=== PATIENT | male | born 1990 ===

== ENCOUNTER 2017-10-02 11:58 | Emergency (ER) | payer OTHER ==
--- NOTE | 2017-10-02 12:41 | ED PDOC ---
HPI: Abdomen Time Seen by Provider: 10/02/17 12:40 Chief Complaint (Nursing): Abdominal Pain Chief Complaint (Provider): ABDOMINAL PAIN History Per: Patient (27 Y/O MALE HERE WITH VOMITING/DIARRHEA X 1 DAY ASSOCIATED WITH CRAMPY LOWER ABDOMINAL PAIN. ATE GUATEMALAN FOOD YESTERDAY BUT STATES NO ONE ELSE ILL.) Past Medical History Reviewed: Historical Data, Nursing Documentation, Vital Signs Vital Signs: Last Vital Signs Temp 97.8 F 10/02/17 12:11 Pulse 80 10/02/17 12:11 Resp 18 10/02/17 12:11 BP 112/71 10/02/17 12:11 Pulse Ox 100 10/02/17 14:01 - Home Medications Home Medications: Ambulatory Orders Medication Instructions Recorded Famotidine [Pepcid] 20 mg PO BID #10 tab 10/02/17 Ondansetron ODT [Zofran ODT] 4 mg PO Q8 PRN #8 odt 10/02/17 - Allergies Allergies/Adverse Reactions: Allergies Allergy/AdvReac Type Severity Reaction Status Date / Time No Known Allergies Allergy Verified 10/02/17 12:11 Review of Systems ROS Statement: Except As Marked, All Systems Reviewed And Found Negative Gastrointestinal: Positive for: Abdominal Pain, Diarrhea Physical Exam - Reviewed Nursing Documentation Reviewed: Yes Vital Signs Reviewed: Yes - Physical Exam Appears: Positive for: Well, Non-toxic, No Acute Distress Head Exam: Positive for: ATRAUMATIC, NORMAL INSPECTION, NORMOCEPHALIC Skin: Positive for: Normal Color, Warm, DRY Eye Exam: Positive for: EOMI, Normal appearance, PERRL ENT: Positive for: Normal ENT Inspection Neck: Positive for: Normal, Painless ROM Cardiovascular/Chest: Positive for: Regular Rate, Rhythm Respiratory: Positive for: CNT, Normal Breath Sounds Gastrointestinal/Abdominal: Positive for: Normal Exam, Soft, Tenderness ( EPIGASTRIC PAIN/MILD LLQ TENDERNESS NOTED) Back: Positive for: Normal Inspection Extremity: Positive for: Normal ROM Neurologic/Psych: Positive for: Alert, Oriented - Laboratory Results Result Diagrams: 10/02/17 13:26 10/02/17 13:26 - ECG O2 Sat by Pulse Oximetry: 100 - Progress ED Course And Treament: pepcid 20 mg iv x 1 dose zofran 4mg iv x 1 dose NS 1 liter 500 ml per hour x 2 liters Patient re-examined and notes moderate improvement in abdominal pain/nausea. Disposition - Clinical Impression Clinical Impression: Gastroenteritis - Patient ED Disposition Is Patient to be Admitted: No - Disposition Disposition: Routine/Home Disposition Time: 15:32 Condition: FAIR Prescriptions: Famotidine [Pepcid] 20 mg PO BID #10 tab Ondansetron ODT [Zofran ODT] 4 mg PO Q8 PRN #8 odt PRN Reason: Nausea/Vomiting Instructions: Gastroenteritis (ED) Forms: [facility] ED School/Work Excuse Print Language: SYRIAC
[2017-10-02] MEDS: Sodium Chloride 0.9% 2,000 ML IV SCH ×2 (12:51→13:02)
[2017-10-02 13:46] LABS: ALB/GLOB RATIO 1.4 (1.0-2.1); ALBUMIN 4.8 g/dL (3.5-5.0); ALT/SGPT 28 U/L (21-72); AST/SGOT 21 U/L (17-59); BLOOD UREA NITROGEN 19 mg/dl (9-20); CALCIUM 9.7 mg/dL (8.4-10.2); GFR AFRICAN-AMERICAN > 60; GFR NON-AFRICAN AMERICAN > 60; LIPASE 62 U/L (23-300)
[2017-10-02 13:47] LABS: BASO % 0.1 % (0.0-2.0); EOS # 0.1 K/uL (0.0-0.7); EOS % 0.3 % (0.0-4.0); HEMOGLOBIN 17.6 g/dL (12.0-18.0); LYMPH # 0.4 K/uL (1.0-4.3); LYMPH % 2.3 % (20.0-40.0); MEAN CELL VOLUME 90.5 fl (80.0-94.0); MEAN CORPUSCULAR HEMOGLOBIN 30.3 pg (27.0-31.0); MEAN CORPUSCULAR HGB CONC 33.5 g/dL (33.0-37.0); MEAN PLATELET VOLUME 8.9 fl (7.2-11.7); MONO # 1.7 K/uL (0.0-0.8); MONO % 9.2 % (0.0-10.0); NEUT # 16.5 K/uL (1.8-7.0); NEUT % 88.1 % (50.0-75.0); PLATELET COUNT 223 K/uL (130-400); RBC 5.79 Mil/uL (4.40-5.90); RED CELL DISTRIBUTION WIDTH 13.2 % (11.5-14.5); WHITE BLOOD COUNT 18.7 K/uL (4.8-10.8)
[2017-10-02 14:35] LABS: BANDS 4 % (0-2); BASOPHIL 1 % (0-2); EOSINOPHIL 1 % (0-7); LYMPHOCYTE 1 % (20-50); MONOCYTE 11 % (0-10); NEUTROPHIL 82 % (42-75); PLATELET ESTIMATE NORMAL (NORMAL); TOTAL CELLS COUNTED 100
[2017-10-02 16:26] VITALS: BP 128/78; PULSE 78; RESP 19; TEMP 97; O2SAT 98
[2017-10-02 16:28] LABS: SQUAMOUS EPITHIAL < 1 /hpf (0-5); URINE BILIRUBIN NEGATIVE (NEGATIVE); URINE BLOOD NEGATIVE (NEGATIVE); URINE CLARITY CLOUDY (Clear); URINE COLOR YELLOW (YELLOW); URINE GLUCOSE (UA) NEG (Normal); URINE LEUKOCYTE ESTERASE NEG Leu/uL (Negative); URINE PROTEIN NEGATIVE (NEGATIVE); URINE UROBILINOGEN 0.2-1.0 mg/dL (0.2-1.0)
== END 2017-10-02 16:27 | disposition home or self-care (01) ==
LOC: H.ER 11:58
DX: K52.9 Noninfective gastroenteritis and colitis, unspecified (principal)
CPT/HCPCS: 80053; 81003; 83690; 85025; 96374; 96375; 99282; J2405; J7030